=== PATIENT | male | born 1960 | race Caucasian/White ===

== ENCOUNTER 2018-11-05 07:38 | Day surgery (SDC) | payer BC ==
--- NOTE | 2018-10-31 15:15 | NUR ---
spoke with pt to do phone preop.he stated that he had no cardiac hx and took no meds. upon further questioning he admitted that he was supposed to be taking bp medicine but it had run out and everytime he checked his bp it was wnl so he stopped taking it. upon further review of his medical record from dr pat's office he not only has htn, but also has vt and svt and is supposed to be on beta blockers and an arb. i spoke with dr hernandez and he said that if the pt started taking his meds right now then chances were that he could have his surgery. i explained this to vincent at dr. mckinley office and called the pt and told him the same. the pt assured me he would start taking his medicine tomorrow and would take it faithfully.
[~2018-11-05] VITALS: Ht 182.9 cm; Wt 95.3 kg
[~2018-11-05 07:38] MED LIST: AMLO2.5T2 PO; DOCUMENT DATE & TIME OF BETA-BLOCKER PO ONE; METO-539 PO
[2018-11-05 08:30] VITALS: BP_SYST 127; BP_DIAS 72; BP_DIAS 82
[2018-11-05] MEDS ORDERED: famotidine 20mg tablet PO ONE (08:30)
[2018-11-05] MEDS ORDERED: ringers solution, lacted 1,000 ML IV SCH ×2 (08:30→08:36)
[2018-11-05] MEDS ORDERED: cefazolin/dext.iso 2gm/100 ML IV ONE (08:30)
[2018-11-05] MEDS ORDERED: ondansetron/PF 4mg/2ml inj IV PRN (08:40)
[2018-11-05] MEDS ORDERED: morphine 4 MG/ML inj SYRINge IV PRN ×2 (08:40)
[2018-11-05] MEDS ORDERED: proCHLORperazine 10 MG/2 ml inj IV PRN (08:40)
[2018-11-05] MEDS ORDERED: meperidine/PF 25mg/ml syringe IV PRN ×3 (08:40)
[2018-11-05 09:02] LABS: BASOPHILS # (AUTO) 0.1 X10'3 (0-0.2); EOSINOPHILS # (AUTO) 0.2 X10'3 (0-0.9); EOSINOPHILS % (AUTO) 2.3 % (0-6); LYMPHOCYTES # (AUTO) 1.6 X10'3 (1.1-4.8); LYMPHOCYTES % (AUTO) 20.9 % (21-51); MEAN CORPUSCULAR HEMOGLOBIN 20.9 PG (27.0-31.0); MEAN CORPUSCULAR HGB CONC 30.9 g/dL (33.0-36.5); MEAN CORPUSCULAR VOLUME 67.7 FL (78-98); MEAN PLATELET VOLUME 9.8 FL (7.4-10.4); MONOCYTES # (AUTO) 0.9 X10'3 (0-0.9); MONOCYTES % (AUTO) 11.6 % (2-12); NEUTROPHILS % (AUTO) 64.2 % (42-75); PRE OP HEMATOCRIT 39.5 % (42.0-52.0); PRE OP HEMOGLOBIN 12.2 g/dL (14.0-17.9); PRE OP PLATELET COUNT 187 X10'3 (140-440); RED BLOOD COUNT 5.84 X10'6 (4.70-6.10)
[2018-11-05 09:15] LABS: ALBUMIN 3.5 G/DL (3.4-5.0); ALBUMIN/GLOBULIN RATIO 0.9 (1.1-1.5); ALKALINE PHOSPHATASE 57 IU/L (46-116); BLOOD UREA NITROGEN 20 MG/DL (7-18); CALCIUM 8.5 MG/DL (8.5-10.1); CHLORIDE 109 MMOL/L (99-107); CREATININE 0.69 MG/DL (0.60-1.10); PRE OP ALT 33 U/L (30-65); PRE OP ANION GAP 8 (8-16); PRE OP AST 17 U/L (10-37); PRE OP BILIRUB, TOTAL 0.4 MG/DL (0.0-1.0); PRE OP GLUCOSE 105 MG/DL (70-104); PRE OP SODIUM 144 MMOL/L (135-145); TOTAL CARBON DIOXIDE 27.5 MMOL/L (24-32); TOTAL PROTEIN 7.5 G/DL (6.4-8.2); eGFR > 90 ML/MIN
[2018-11-05] MEDS ORDERED: ROPIVAcaine 0.5% (5mg/ml) 30ml vial ONE (11:18)
[2018-11-05] MEDS ORDERED: BUPIVAcaine/PF 2.5 mg/ml (0.25%) 30ml vial ONE (11:18)
[2018-11-05] MEDS ORDERED: fentaNYL/PF 50MCG/1 ML 2ML syringe ONE (11:28)
[2018-11-05] MEDS ORDERED: MIDAZolam 5mg/5ml vial ONE (11:28)
[2018-11-05] MEDS ORDERED: LIDOcaine 1% 30ml preserv. free vial ONE (11:32)
[2018-11-05 12:19] VITALS: BP 124/75
--- NOTE | 2018-11-05 12:19 | NUR ---
Received from OR via [facility], accompanied by Anesthesiologist DR NEWMAN and report given by Anesthesiologist. PT DROWSY, LEFT NECK W/ISLAND SETH COVERING, CDI. Addendum: 11/05/18 at 1237 by Asuncion Lugo RN Amended: Links added.
[2018-11-05 12:29] VITALS: BP 118/71
[2018-11-05 12:39] VITALS: BP 114/78
[2018-11-05 13:09] VITALS: BP 120/82
--- NOTE | 2018-11-05 13:19 | NUR ---
PT GIVEN AND GONE OVER D/C INSTRUCTIONS, PT VERBALIZES UNDERSTANDING, DRSG REMAINS CDI, EXTRA DRSG SUPPLIES GIVEN TO PT IN CASE OF NEEDED REDRESSED, PT D/CD VIA W/C TO PRIVATE VEHICLE W/O INCIDENT. Addendum: 11/05/18 at 1333 by Asuncion Lugo RN Amended: Links added.
== END 2018-11-05 13:19 | disposition home or self-care (01) ==
LOC: PAS 07:38
PROVIDERS: ATTEND Surgery
DX: C44.42 Squamous cell carcinoma of skin of scalp and neck (principal); C44.41 Basal cell carcinoma of skin of scalp and neck; G47.30 Sleep apnea, unspecified; Z98.890 Other specified postprocedural states; Z79.899 Other long term (current) drug therapy; Z72.89 Other problems related to lifestyle
CPT/HCPCS: 11620; 11626; 36415; 80053; 85025; 93005; J2001; J2250; J3010; J3490; A4215; A4615; A6449; A7000; J2795; J7120

== ENCOUNTER 2018-11-19 10:32 | Day surgery (SDC) | payer BC ==
[2018-11-19] VITALS (11 sets, daily range): BP systolic 134–155; BP diastolic 59–81
[~2018-11-19] VITALS: Ht 182.9 cm; Wt 95.3 kg
[~2018-11-19 10:32] MED LIST changes: -DOCUMENT DATE & TIME OF BETA-BLOCKER PO ONE
[2018-11-19 11:27] LABS: BASOPHILS # (AUTO) 0.1 X10'3 (0-0.2); BASOPHILS % (AUTO) 0.8 % (0-1); EOSINOPHILS # (AUTO) 0.2 X10'3 (0-0.9); EOSINOPHILS % (AUTO) 2.3 % (0-6); LYMPHOCYTES # (AUTO) 1.8 X10'3 (1.1-4.8); LYMPHOCYTES % (AUTO) 20.8 % (21-51); MEAN CORPUSCULAR HEMOGLOBIN 21.1 PG (27.0-31.0); MEAN CORPUSCULAR HGB CONC 31.1 g/dL (33.0-36.5); MEAN CORPUSCULAR VOLUME 67.9 FL (78-98); MEAN PLATELET VOLUME 9.5 FL (7.4-10.4); MONOCYTES # (AUTO) 0.8 X10'3 (0-0.9); MONOCYTES % (AUTO) 9.5 % (2-12); NEUTROPHILS # (AUTO) 5.8 X10'3 (1.8-7.7); NEUTROPHILS % (AUTO) 66.6 % (42-75); PRE OP HEMATOCRIT 41.5 % (42.0-52.0); PRE OP HEMOGLOBIN 12.9 g/dL (14.0-17.9); PRE OP PLATELET COUNT 196 X10'3 (140-440); RED BLOOD COUNT 6.11 X10'6 (4.70-6.10); RED CELL DISTRIBUTION WIDTH 15.4 % (11.5-14.5)
[2018-11-19] MEDS ORDERED: famotidine 20mg tablet PO ONE (11:30)
[2018-11-19] MEDS ORDERED: ringers solution, lacted 1,000 ML IV SCH ×2 (11:30→11:52)
[2018-11-19] MEDS ORDERED: DOCUMENT DATE & TIME OF BETA-BLOCKER PO ONE (11:30)
[2018-11-19] MEDS ORDERED: cefazolin/dext.iso 2gm/100 ML IV ONE (11:30)
[2018-11-19 11:41] LABS: ALBUMIN 3.4 G/DL (3.4-5.0); ALBUMIN/GLOBULIN RATIO 0.9 (1.1-1.5); ALKALINE PHOSPHATASE 56 IU/L (46-116); BLOOD UREA NITROGEN 13 MG/DL (7-18); BUN/CREATININE RATIO 18.3 (5.4-32.0); CALCIUM 8.5 MG/DL (8.5-10.1); CHLORIDE 108 MMOL/L (99-107); CREATININE 0.71 MG/DL (0.60-1.10); PRE OP ALT 31 U/L (30-65); PRE OP ANION GAP 6 (8-16); PRE OP AST 15 U/L (10-37); PRE OP BILIRUB, TOTAL 0.4 MG/DL (0.0-1.0); PRE OP GLUCOSE 104 MG/DL (70-104); PRE OP POTASSIUM 4.1 MMOL/L (3.4-5.1); PRE OP SODIUM 142 MMOL/L (135-145); TOTAL CARBON DIOXIDE 28.2 MMOL/L (24-32); TOTAL PROTEIN 7.4 G/DL (6.4-8.2); eGFR > 90 ML/MIN
[2018-11-19] MEDS ORDERED: ondansetron/PF 4mg/2ml inj IV PRN (11:55)
[2018-11-19] MEDS ORDERED: proCHLORperazine 10 MG/2 ml inj IV PRN (11:55)
[2018-11-19] MEDS ORDERED: morphine 4 MG/ML inj SYRINge IV PRN ×2 (11:55)
[2018-11-19] MEDS ORDERED: meperidine/PF 25mg/ml syringe IV PRN ×3 (11:55)
[2018-11-19 12:09] LABS: ANISOCYTOSIS 1+; MICROCYTOSIS 2+; PLATELET ESTIMATE NORMAL
[2018-11-19] MEDS ORDERED: BUPIVAcaine/PF 2.5 mg/ml (0.25%) 30ml vial ONE (12:43)
[2018-11-19] MEDS ORDERED: sevoflurane 250ml liquid IH ONE (13:01)
[2018-11-19] MEDS ORDERED: midazolam 2 mg/2 ml injection ONE (13:04)
[2018-11-19] MEDS ORDERED: fentaNYL/PF 50MCG/1 ML 2ML syringe ONE (13:04)
[2018-11-19] MEDS ORDERED: propofol inj 20 ML IV ONE (13:10)
--- NOTE | 2018-11-19 14:30 | NUR ---
Received from OR via , accompanied by Anesthesiologist DR. PHAM and report given by Anesthesiolgist. PATIENT ARRIVED ON GURNEY, LMA IN PLACE. VSS CHARTED. 20 GAUGE PIV TO RIGHT FA, WITH IVF INFUSING. DRESSING TO LEFT NECK, CDI.
--- NOTE | 2018-11-19 14:50 | NUR ---
LMA DC'D PATIENT TOLERATED WELL, 02 99% 0N 10L MASK
--- NOTE | 2018-11-19 16:00 | NUR ---
PATIENT DC CRITERIA MET. PATIENT DC INSTRUCTIONS GIVEN TO PATIENT AND FAMILY. PIV DC'D CATH TIP INTACT. PATIENT TO PERSONAL VEHICLE WITH ALL PERSONAL BELONGINGS.
== END 2018-11-19 16:00 | disposition home or self-care (01) ==
LOC: PAS 10:32
PROVIDERS: ATTEND Surgery
DX: C44.42 Squamous cell carcinoma of skin of scalp and neck (principal); I10 Essential (primary) hypertension; G47.30 Sleep apnea, unspecified; Z98.890 Other specified postprocedural states; E66.9 Obesity, unspecified; Z68.28 Body mass index [BMI] 28.0-28.9, adult; Z79.899 Other long term (current) drug therapy
CPT/HCPCS: 11626; 36415; 80053; 85025; J2250; J2704; J3010; J3490; A4215; A4618; A6449; A7000; J7120

== ENCOUNTER 2018-11-28 07:56 | Emergency (ER) | payer BC ==
[~2018-11-28] VITALS: Ht 182.9 cm; Wt 95.5 kg
[2018-11-28 08:31] LABS: BASOPHILS # (AUTO) 0.1 X10'3 (0-0.2); BASOPHILS % (AUTO) 1.1 % (0-1); EOSINOPHILS # (AUTO) 0.1 X10'3 (0-0.9); EOSINOPHILS % (AUTO) 1.7 % (0-6); HEMATOCRIT 37.8 % (42.0-52.0); HEMOGLOBIN 11.7 g/dl (14.0-17.9); LYMPHOCYTES # (AUTO) 1.7 X10'3 (1.1-4.8); LYMPHOCYTES % (AUTO) 20.7 % (21-51); MEAN CORPUSCULAR HEMOGLOBIN 21.2 PG (27.0-31.0); MEAN CORPUSCULAR HGB CONC 31.1 g/dL (33.0-36.5); MEAN CORPUSCULAR VOLUME 68.2 FL (78-98); MONOCYTES # (AUTO) 0.9 X10'3 (0-0.9); MONOCYTES % (AUTO) 10.5 % (2-12); NEUTROPHILS # (AUTO) 5.4 X10'3 (1.8-7.7); PLATELET COUNT 175 X10'3 (140-440); RED BLOOD COUNT 5.53 X10'6 (4.70-6.10); RED CELL DISTRIBUTION WIDTH 15.3 % (11.5-14.5); WHITE BLOOD COUNT 8.2 X10'3 (4.5-11.0)
[2018-11-28 08:40] LABS: ALANINE AMINOTRANSFERASE 29 U/L (12-78); ALBUMIN 3.4 G/DL (3.4-5.0); ALBUMIN/GLOBULIN RATIO 0.9 (1.1-1.5); ALKALINE PHOSPHATASE 55 IU/L (46-116); ANION GAP 8 (8-16); ASPARTATE AMINO TRANSFERASE 12 U/L (10-37); BILIRUBIN,TOTAL 0.4 MG/DL (0.1-1.0); BLOOD UREA NITROGEN 17 MG/DL (7-18); BUN/CREATININE RATIO 20.5 (5.4-32.0); CALCIUM 8.1 MG/DL (8.5-10.1); CHLORIDE 106 MMOL/L (99-107); CREATININE 0.83 MG/DL (0.60-1.10); SODIUM 139 MMOL/L (135-145); TOTAL CARBON DIOXIDE 25.1 MMOL/L (24-32); TOTAL PROTEIN 7.4 G/DL (6.4-8.2); eGFR > 90 ML/MIN
[2018-11-28 08:44] LABS: GLUCOSE 194 MG/DL (70-104)
[2018-11-28 08:56] LABS: PARTIAL THROMBOPLASTIN TIME 25 SECONDS (22-32)
--- NOTE | 2018-11-28 09:19 | NUR ---
Pt ambulated to restroom with steady gait.
[2018-11-28] MEDS ORDERED: normal saline 1000ml 1,000 ML IV ONE (09:25)
[2018-11-28 09:47] LABS: CLARITY,URINE CLOUDY (Clear); COLOR,URINE YELLOW (Yellow); GLUCOSE, URINE NEGATIVE (Neg); KETONES,URINE NEGATIVE (Neg); LEUKOCYTE ESTERASE ,URINE NEGATIVE (Neg); NITRITES, URINE NEGATIVE (Neg); OCCULT BLOOD,URINE NEGATIVE (Neg); PH,URINE 5.5 (4.8-8.0); PROTEIN,URINE 30 mg/dl (Neg); UROBILINOGEN,URINE 0.2 E.U/dL (0.2-1.0)
[2018-11-28 09:48] LABS: UA COLLECTION TYPE CLN CATCH MIDSTREAM
[2018-11-28 10:01] LABS: CELLULAR CAST 0-4 /LPF (NEGATIVE); MUCUS STRANDS MANY /LPF (Neg)
[2018-11-28 10:02] LABS: BACTERIA,URINE 1+ /HPF (Neg); COARSE GRANULAR CAST 0-3 /LPF (NEGATIVE); RBC,URINE 0-2 /HPF (0-2); SQUAMOUS EPITHELIAL CELL,UR FEW /LPF (FEW); WBC,URINE 0-4 /HPF (0-4)
[2018-11-28 10:39] VITALS: BP 110/63
[2018-11-28 11:45] LABS: MICROCYTOSIS 2+; PLATELET ESTIMATE NORMAL
[2018-11-28 11:46] LABS: HYPOCHROMASIA 1+; POLYCHROMASIA FEW
[2018-11-28 11:47] LABS: ELLIPTOCYTES FEW; SCHISTOCYTES FEW
== END 2018-11-28 10:41 | disposition home or self-care (01) ==
LOC: ER 07:57
DX: R73.9 Hyperglycemia, unspecified (principal); I95.9 Hypotension, unspecified; R55 Syncope and collapse; I48.91 Unspecified atrial fibrillation; Z98.890 Other specified postprocedural states; Z79.899 Other long term (current) drug therapy
CPT/HCPCS: 36415; 71045; 80053; 81001; 84484; 85025; 85610; 85730; 93005; 96360; 99284; J7030

== ENCOUNTER 2021-02-12 19:51 | Emergency (ER) | payer BC ==
[~2021-02-12] VITALS: Ht 182.9 cm; Wt 220.0 kg
[2021-02-12 20:22] VITALS: BP 149/87
[2021-02-12] MEDS ORDERED: morphine 4 MG/ML inj SYRINge IM ONE ×2 (20:30→23:10)
[2021-02-12] MEDS ORDERED: ondansetron 4mg rapidly disintigrating tab PO ONE (20:30)
[2021-02-12 21:28] LABS: CLARITY,URINE CLEAR (Clear); COLOR,URINE YELLOW (Yellow); GLUCOSE, URINE NEGATIVE (Neg); KETONES,URINE NEGATIVE (Neg); LEUKOCYTE ESTERASE ,URINE NEGATIVE (Neg); NITRITES, URINE NEGATIVE (Neg); OCCULT BLOOD,URINE NEGATIVE (Neg); PROTEIN,URINE NEGATIVE (Neg); UA COLLECTION TYPE URINAL; UROBILINOGEN,URINE 0.2 E.U/dL (0.2-1.0)
[2021-02-12 21:32] LABS: BASOPHILS # (AUTO) 0.1 X10'3 (0-0.2); BASOPHILS % (AUTO) 1.6 % (0-1); EOSINOPHILS # (AUTO) 0.1 X10'3 (0-0.9); EOSINOPHILS % (AUTO) 0.8 % (0-6); HEMATOCRIT 39.8 % (42.0-52.0); HEMOGLOBIN 13.1 g/dl (14.0-17.9); LYMPHOCYTES # (AUTO) 1.3 X10'3 (1.1-4.8); LYMPHOCYTES % (AUTO) 14.4 % (21-51); MEAN CORPUSCULAR HEMOGLOBIN 21.1 PG (27.0-31.0); MEAN CORPUSCULAR HGB CONC 32.9 g/dL (33.0-36.5); MEAN CORPUSCULAR VOLUME 64.3 FL (78-98); MEAN PLATELET VOLUME 9.5 FL (7.4-10.4); MONOCYTES # (AUTO) 0.9 X10'3 (0-0.9); MONOCYTES % (AUTO) 9.4 % (2-12); NEUTROPHILS # (AUTO) 6.8 X10'3 (1.8-7.7); NEUTROPHILS % (AUTO) 73.8 % (42-75); PLATELET COUNT 285 X10'3 (140-440); RED BLOOD COUNT 6.19 X10'6 (4.70-6.10); RED CELL DISTRIBUTION WIDTH 14.7 % (11.5-14.5); WHITE BLOOD COUNT 9.2 X10'3 (4.5-11.0)
[2021-02-12 21:40] LABS: ALANINE AMINOTRANSFERASE 187 U/L (12-78); ALBUMIN 3.4 G/DL (3.4-5.0); ALBUMIN/GLOBULIN RATIO 0.8 (1.1-1.5); ALKALINE PHOSPHATASE 123 IU/L (46-116); ANION GAP 10 (8-16); ASPARTATE AMINO TRANSFERASE 70 U/L (10-37); BILIRUBIN,TOTAL 0.8 MG/DL (0.1-1.0); BLOOD UREA NITROGEN 7 MG/DL (7-18); BUN/CREATININE RATIO 8.1 (5.4-32.0); CALCIUM 8.4 MG/DL (8.5-10.1); CHLORIDE 102 MMOL/L (99-107); CREATININE 0.86 MG/DL (0.60-1.10); GLUCOSE 113 MG/DL (70-104); LIPASE 85 U/L (73-393); SODIUM 137 MMOL/L (135-145); TOTAL PROTEIN 7.9 G/DL (6.4-8.2); eGFR 90 ML/MIN
[2021-02-12] MEDS ORDERED: magnesium citrate 296ml oral solution PO ONE (23:00)
[2021-02-12] MEDS ORDERED: POLY17PO10 PO (23:00)
== END 2021-02-13 00:02 | disposition home or self-care (01) ==
LOC: ER 19:51
DX: U07.1 COVID-19 (principal); K80.20 Calculus of gallbladder without cholecystitis without obstruction; K59.00 Constipation, unspecified; I48.91 Unspecified atrial fibrillation
CPT/HCPCS: 74176; 76700; 80053; 81003; 83690; 85025; 93005; 96372; 99285; J2270

== ENCOUNTER 2024-07-22 09:21 | Outpatient (CLI) | payer MEDICAID | END 2024-07-22 23:59 | disposition home or self-care (01) | LOC: VAS 09:21 | PROVIDERS: ATTEND Nurse Practitioner | DX: I73.9 Peripheral vascular disease, unspecified (principal) | CPT/HCPCS: 93922; 93925 ==